=== PATIENT | male | born 1960 | race Caucasian/White ===

== ENCOUNTER → 2020-05-26 | Outpatient (CLI) | payer OTHER ==
--- NOTE | 2020-05-26 11:26 | REP ---
INDICATION: ABDOMINAL AORTIC ANEURYSM, WITHOUT RUPTURE COMPARISON: None. TECHNIQUE: Hill scale and color Doppler evaluation using linear high frequency transducer Findings: FINDINGS: Two-dimensional hill scale and color images demonstrate mild mixed atheromatous plaquing with normal laminar flow and no appreciable narrowing. Color Doppler interrogation demonstrates normal arterial wave patterns and velocities with mild spectral broadening. Normal flow direction is appreciated in the bilateral vertebral arteries. ICA peak systolic velocity: Right 88.7 cm/s; Left 64.8 cm/s ICA diastolic velocity: Right 35.1 cm/s; Left 18.1 cm/s ECA peak systolic velocity: Right 62.3 cm/s; Left 89.5 cm/s CCA peak systolic velocity: Right 94.4 cm/s; Left 98.1 cm/s ICA/CCA ratio: Right 0.37 cm/s; Left 0.18 cm/s IMPRESSION: No hemodynamically significant areas of narrowing or stenosis appreciated. Based on set standards narrowing falls within the less than 50%/normal range. <Electronically signed by Shahab Martinez > 05/26/20 [id number]
--- NOTE | 2020-05-26 12:19 | REP ---
INDICATION: ABDOMINAL AORTIC ANEURYSM, WITHOUT RUPTURE COMPARISON: None. TECHNIQUE: Real time hill scale and Duplex Doppler evaluation of the bilateral lower extremity arterial vasculature using linear high frequency transducer. FINDINGS: Hill scale and duplex doppler images demonstrate mild to moderate amounts of atheromatous plaquing with areas of minimal narrowing but no focal stenosis identified. Doppler interrogation demonstrates normal arterial wave forms and velocities bilaterally. There is ectasia of the left popliteal artery proximal aspect with maximum diameter 1.3 cm. Peak systolic velocities (cm/sec) Common femoral artery: Right 68; Left 73 Profunda femoris: Right 85; Left 69 SFA (proximal): Right 73; Left 94 SFA (mid): Right for 80; Left 128 SFA (distal): Right 65; Left 74 Popliteal artery: Right 86; Left 65 GAIL (prox.): Right 93; Left 66 Tibioperoneal trunk: Right 46; Left 45 DIVERSIFIED CROPS I FARMWORKER (prox.): Right 60; Left 69 DIVERSIFIED CROPS I FARMWORKER (distal): Right 72; Left 61 GAIL (distal): Right 64; Left 70 RAYMOND right 1.23 and left 1.08. IMPRESSION: Atheromatous changes with areas of narrowing but no obvious focal occlusion or stenosis. <Electronically signed by Adonis Hill > 05/26/20 [id number]
== END ==
LOC: M RAD 09:10
PROVIDERS: ATTEND Surgery
DX: I71.4 Abdominal aortic aneurysm, without rupture (principal)

== ENCOUNTER 2021-11-29 07:54 | Day surgery (SDC) | payer OTHER ==
[~2021-11-29] VITALS: Ht 170.2 cm; Wt 87.0 kg
[~2021-11-29 07:54] MED LIST: ATOR1TAB21; D3 +TAB PO; LIDOCAINE 2% 100MG/5ML SDV (FOR ANES.) As Ordered ONE; NS 1,000 ML IV ONE; OMEP40CA5; ONE1TAB2 PO; PROAAER10; SILD100T; SUPRSOL2; TIAZ1CAP4; [UNRECOGNIZED DRUG - CODE]; fentaNYL 100 MCG/2 ML INJECTION As Ordered ONE; propofoL 500 MG/50 ML VIAL As Ordered ONE
[2021-11-29] MEDS ORDERED: ePHEDrine SULFATE 25 MG/5 ML(5MG/ML) SYRINGE As Ordered ONE (09:23)
[2021-11-29 10:05] VITALS: BP 145/92
== END 2021-11-29 10:07 | disposition home or self-care (01) ==
LOC: M OPP 07:54
PROVIDERS: ATTEND Internal Medicine Gastroenterology
DX: Z12.11 Encounter for screening for malignant neoplasm of colon (principal); K57.30 Diverticulosis of large intestine without perforation or abscess without bleeding; K64.0 First degree hemorrhoids; K31.89 Other diseases of stomach and duodenum; R12 Heartburn; E78.00 Pure hypercholesterolemia, unspecified; J44.9 Chronic obstructive pulmonary disease, unspecified; I73.00 Raynaud's syndrome without gangrene; Z79.1 Long term (current) use of non-steroidal anti-inflammatories (NSAID); Z79.02 Long term (current) use of antithrombotics/antiplatelets; Z79.899 Other long term (current) drug therapy; Z87.891 Personal history of nicotine dependence; Z90.49 Acquired absence of other specified parts of digestive tract
CPT/HCPCS: 43239; 45378; 88305; J3010

== ENCOUNTER → 2022-01-03 | Outpatient (CLI) | payer OTHER ==
[~2022-01-03] MED LIST changes: -LIDOCAINE 2% 100MG/5ML SDV (FOR ANES.) As Ordered ONE; -NS 1,000 ML IV ONE; -fentaNYL 100 MCG/2 ML INJECTION As Ordered ONE; -propofoL 500 MG/50 ML VIAL As Ordered ONE
== END ==
LOC: M RAD 12:32
PROVIDERS: ATTEND Physician Assistant
DX: R91.8 Other nonspecific abnormal finding of lung field (principal); R06.00 Dyspnea, unspecified; J98.6 Disorders of diaphragm